=== PATIENT | female | born 2000 | race Two or more races ===

== ENCOUNTER 2021-05-19 18:51 | Emergency (ER) | payer OTHER ==
[~2021-05-19] VITALS: Ht 167.6 cm; Wt 84.1 kg
[2021-05-19 19:15] VITALS: BP 116/59
[2021-05-19] MEDS ORDERED: HYDR-2765 PO (21:39)
--- NOTE | 2021-05-19 21:40 | PHYS DOC ---
Past Medical History Additional Past Medical Histor: RECTABL ABSCESS Past Surgical History: Smoking Status: Never Smoker Alcohol Use: Occasionally General Adult EDM: Chief Complaint: ABSCESS HPI: HPI: Patient is a 21 year old female presents to the emergency department complaining of pain from her I&D site on her buttocks she reports she had an abscess on her buttocks, seen urgent care yesterday, and I&D procedure was performed, patient was started on oral antibiotic, was not given pain medications, patient reports she is having pain at the site where they did the incision and drainage. Patient reports she is taking her antibiotics as prescribed. Patient states she has not taken any [id number]-iklivli or prescription pain medications for her pain. Patient reports she has not tried any nonpharmacological pain relief therapies at home. Patient denies fever or chills. Denies nausea, vomiting, or diarrhea. Patient reports her pain is a stabbing burning pain that she rates a 10 out of 10. Patient reports her last menstrual cycle was 1 week ago with normal duration of flow, denies allergies to medications, see [facility] for primary care. Patient denies any other physical complaints or physical concerns. Review of Systems: Review of Systems: 14 body systems of review of systems have been reviewed. See HPI for pertinent positives and negative responses, otherwise all other systems are negative, nonpertinent or noncontributory. Constitutional: Negative except as outlined in HPI above. Skin: Negative except as outlined in HPI above. Eyes: Negative except as outlined in HPI above. HENT: Negative except as outlined in HPI above. Respiratory: Negative except as outlined in HPI above. Cardiovascular: Negative except as outlined in HPI above. GI: Negative except as outlined in HPI above. : Negative except as outlined in HPI above. Musculoskeletal: Negative except as outlined in HPI above. Integument: Negative except as outlined in HPI above. Neurologic: Negative except as outlined in HPI above. Endocrine: Negative except as outlined in HPI above. Lymphatic: Negative except as outlined in HPI above. Psychiatric: Negative except as outlined in HPI above. Heart Score: C/O Chest Pain: No Risk Factors: Risk Factors: DM, Current or recent (<one month) smoker, HTN, HLP, family history of CAD, obesity. Risk Scores: Score 0 - 3: 2.5% MACE over next 6 weeks - Discharge Home Score 4 - 6: 20.3% MACE over next 6 weeks - Admit for Clinical Observation Score 7 - 10: 72.7% MACE over next 6 weeks - Early Invasive Strategies Allergies: Allergies: Allergies Coded Allergies Type Severity Reaction Last Updated Verified No Known Drug Allergies 05/19/21 No Physical Exam: PE: Constitutional: Well developed, well nourished, no acute distress, non-toxic appearance. 21-year-old female in no apparent distress. HENT: Normocephalic, atraumatic. Eyes: Conjunctiva normal, no discharge. Neck: Normal range of motion, no stridor. Cardiovascular: No cyanosis appreciated, distal cap refill less than 2 seconds. Lungs & Thorax: Patient is in no respiratory distress, no audible adventitious lung sounds appreciated. Abdomen: Nontender, no abnormalities noted. Skin: Warm, dry, no erythema, no rash. See note for focused skin exam Back: No tenderness, no deformities. Extremities: No tenderness, no cyanosis, no clubbing, ROM intact, no edema. Neurologic: Alert and oriented X 3, normal motor function, normal sensory function, no focal deficits noted. Psychologic: Affect normal, judgement normal, mood normal. 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 Current Patient Data: Vital Signs: Vital Signs Date Time Temp Pulse Resp B/P (MAP) Pulse Ox O2 Delivery O2 Flow Rate FiO2 05/19/21 19:15 99.6 100 20 116/59 100 Room Air 99.6 EKG: EKG: [] Radiology/Procedures: Radiology/Procedures: [] Course & Med Decision Making: Course & Med Decision Making Pertinent Labs and Imaging studies reviewed. (See chart for details) 21-year-old female, vital signs reviewed, presents emergency department concerning painful I&D abscess site. Physical examination reveals I&D site with appropriate drainage, there is no packing. Discussed with patient home care, patient states she has only done 1 sitz bath since I&D procedure yesterday morning. Discussed at length with and educated at length with patient regarding I&D wound care at home, patient reports she was not given any instructions on how to care for her incision and drainage wound. Discussed with patient at length current antibiotic regimen, side effects, taking medication as directed until complete. Strict follow-up with primary care for wound evaluation and ongoing management. Patient gave verbal understanding of I&D wound care at home, antibiotic regimen, follow-up with primary care, patient states she is thankful and feels confident she can care for her abscess at home now. Patient will be given oral pain medication prior to discharge. Discussed with the patient all findings and diagnostic testing as well as the need to follow-up with their primary care provider for further evaluation and treatment or return to the ED if any new or worsening symptoms. Strict return precautions were also discussed at length, the patient voiced understanding and agreement with the discharge planning. The patient was nontoxic in appearance, in no apparent distress, and hemodynamically stable at the time of disposition. Dragon Disclaimer: Dragon Disclaimer: This electronic medical record was generated, in whole or in part, using a voice recognition dictation system. Departure Departure Impression: Primary Impression: Abscess, gluteal, left Disposition: 01 HOME / SELF CARE / HOMELESS Condition: GOOD Referrals: NO PCP (PCP) Patient Instructions: Abscess Additional Instructions: You were seen today in the emergency department for a draining abscess to your left buttocks. You were seen yesterday at the urgent care in which they performed an incision and drainage. It is draining normally at this time. As we discussed at length, please continue with the oral antibiotic regimen that they started you on, please take sitz baths every 2-3 hours for the next several days. Please follow-up with your urgent care this coming Saturday for re evaluation of their incision and drainage. I am prescribing you a short dose of oral pain medications to use for severe pain otherwise please use Tylenol and/or Motrin. Please follow-up with your primary care physician at [facility] for ongoing pain management and wound care management. Please return to the emergency department for worsening symptoms other concerns. Thank you for visiting our Emergency Department. It was a pleasure taking care of you today in the emergency department and we appreciate you trusting us with your care. If any additional problems come up don't hesitate to return to visit us. Please follow up with your primary care provider so they can plan additional care if needed and know about the problem that you had. If symptoms worsen come back to the Emergency Department. Any concerning symptoms that start such as chest pain, shortness of air, weakness or numbness on one side of the body, running high fevers or any other concerning symptoms return to the ER. EMERGENCY DEPARTMENT GENERAL DISCHARGE INSTRUCTIONS Thank you for coming to [facility] Emergency Department (ED) [place] and trusting us with you care. We trust that you had a positive experience in our Emergency Department. If you wish to speak to the department management, you may call the Director at [phone]. YOUR FOLLOW UP INSTRUCTIONS ARE FOLLOWS: 1. Do you have a private Doctor? If you do not have a private doctor, please ask for a resource list of physicians or clinics that may be able to assist you with follow up care. 2. The Emergency Physicain has interpreted your x-rays. The X-Ray specialist will also review them. If there is a change in the findings, you will be notified in 48 hours when at all possible. 3. A lab test or culture has been done, your results will be reviewed and you will be notified if you need a change in treatment. ADDITIONAL INSTRUCTIONS AND INFORMATION: 1. Your care today has been supervised by a physician who is specially trained in emergency care. Many problems require more than one evaluation for a complete diagnosis and treatment. We recommend that you schedule your follow up appointment as recommended to ensure complete treatment of you illness or injury. If you are unable to obtain follow up care and continue to have a problem, or if your condition worsens, we recommend that you return to the ED. 2. We are not able to safely determine your condition over the phone nor are we able to give sound medical advice over the phone. For these safety reasons, if you call for medical advice we will ask you to come to the ED for further evaluation. 3. If you have any questions regarding these discharge instructions please call the ED at [phone]. SAFETY INFORMATION: In the interest of safety, wellness, and injury prevention; we encourage you to wear your sealbelt, if you smoke; quite smoking, and we encourage family to use a protective helmet for bicycling and other sporting events that present an increased risk for head injury. IF YOUR SYMPTOMS WORSEN OR NEW SYMPTOMS DEVELOP, OR YOU HAVE CONCERNS ABOUT YOUR CONDITION; OR IF YOUR CONDITION WORSENS WHILE YOU ARE WAITING FOR YOUR FOLLOW UP APPOINTMENT; EITHER CONTACT YOUR PRIMARY CARE DOCTOR, THE PHYSICIAN WHOSE NAME AND NUMBER YOU WERE GIVEN, OR RETURN TO THE ED IMMEDIATELY. Scripts Hydrocodone Bit/Acetaminophen (HYDROCODONE-APAP 7.5-325 ) 1 Tab Tablet 1 TAB PO PRN Q6HRS PRN for PAIN, #10 TAB 0 Refills Prov: AMY MATOS APRN 05/19/21 AMY MATOS APRN May 19, 2021 21:40
[2021-05-19] MEDS ORDERED: HYDROcodone/APAP 5/325MG 1 TAB TABLET PO ONE (22:00)
== END 2021-05-19 21:55 | disposition home or self-care (01) ==
LOC: ER 18:51
DX: L02.31 Cutaneous abscess of buttock (principal)
CPT/HCPCS: 99283

== ENCOUNTER 2021-08-15 00:03 | Emergency (ER) | payer OTHER ==
[~2021-08-15] VITALS: Ht 167.6 cm; Wt 84.1 kg
[~2021-08-15 00:03] MED LIST: HYDR-2765 PO
[2021-08-15 00:25] VITALS: BP 120/68
[2021-08-15] MEDS ORDERED: AMOX1TAB61 PO (00:49)
[2021-08-15] MEDS ORDERED: NAPR-683 PO (00:49)
[2021-08-15] MEDS ORDERED: TRAM-48 PO (00:49)
--- NOTE | 2021-08-15 00:52 | PHYS DOC ---
Past Medical History Additional Past Medical Histor: RECTABL ABSCESS Past Surgical History: Smoking Status: Never Smoker Alcohol Use: None General Adult EDM: Chief Complaint: SORE THROAT HPI: HPI: Patient is a 21 year old female presents with a chief complaint of sore throat. Patient states she has had sore throat for approximately 1 week. Is primarily located on the left side. Patient states she was seen at [facility] urgent care had a negative strep test received antibiotic shot and prescription for clindamycin. Patient states she has been taking her medications as prescribed but her symptoms continue and seem to be worse. Patient has been taking Tylenol with no relief for her pain. Review of Systems: Review of Systems: Review of systems: Constitutional symptoms- No fever, no chills. Eyes- No Discharge, No Visual Loss Respiratory symptoms- No shortness of breath, No wheezing, No Dyspnea on Exertion Cardiovascular Systems; No chest pain, No Palpitations, No syncope Gastrointestinal symptoms: NO abdominal pain, no nausea, no vomiting or diarrhea. Genitourinary symptoms: No dysuria. Musculoskeletal symptoms: No back pain No extremity pain. NEUROLOGICAL Symptoms: No headache, no generalized weakness; No focal Weakness Skin: No rash. HEENT positive sore throat Heart Score: C/O Chest Pain: N/A Risk Factors: Risk Factors: DM, Current or recent (<one month) smoker, HTN, HLP, family history of CAD, obesity. Risk Scores: Score 0 - 3: 2.5% MACE over next 6 weeks - Discharge Home Score 4 - 6: 20.3% MACE over next 6 weeks - Admit for Clinical Observation Score 7 - 10: 72.7% MACE over next 6 weeks - Early Invasive Strategies Allergies: Allergies: Allergies Coded Allergies Type Severity Reaction Last Updated Verified No Known Drug Allergies 05/19/21 No Physical Exam: PE: General: alert, no acute distress. Skin: warm, dry and intact, no erythema, no rash. HENT: bilateral external ears normal, oropharynx moist, nose normal. Pharyngeal erythema no exudate no tonsillar deviation no hoarse voice Head:: Normocephalic, atraumatic. Neck: Trachea midline. Eyes: EOMI, Normal conjunctiva, No drainage CARDIOVASCULAR: Regular rate and rhythm RESPIRATORY: No respiratory distress Back: Full range of motion. MUSCULOSKELETAL: Full range of motion of bilateral upper and lower extremities. GASTROINTESTINAL: Abdomen soft without rebound or guarding. NEUROLOGICAL: Alert and noted to person, place and time. No neurological deficits observed Psychiatric: Cooperative. Normal judgment Current Patient Data: Vital Signs: Vital Signs Date Time Temp Pulse Resp B/P (MAP) Pulse Ox O2 Delivery O2 Flow Rate FiO2 08/15/21 00:25 98.2 93 16 120/68 (85) 100 Room Air 98.2 EKG: EKG: [] Radiology/Procedures: Radiology/Procedures: [] Course & Med Decision Making: Course & Med Decision Making Pertinent Labs and Imaging studies reviewed. (See chart for details) [] We will treat patient with Decadron p.o. Her antibiotic will be changed to Augmentin. We will also prescribe patient Ultram. Dragon Disclaimer: [employer] Disclaimer: This electronic medical record was generated, in whole or in part, using a voice recognition dictation system. Departure Departure Impression: Primary Impression: Pharyngitis Disposition: HOME / SELF CARE / HOMELESS Condition: STABLE Referrals: NO PCP (PCP) Patient Instructions: Sore Throat Scripts Naproxen (NAPROSYN) 500 Mg Tablet 500 MG PO BID, #20 TAB Prov: SYLVAIN MIRANDA I DO 08/15/21 Tramadol Hcl (ULTRAM) 50 Mg Tablet 50 MG PO Q4HRS PRN for PAIN, #20 TAB 0 Refills Prov: SYLVAIN MIRANDA I DO 08/15/21 Amoxicillin/Potassium Clav (AUGMENTIN 875-125 TABLET) 1 Each Tablet 1 TAB PO BID for 10 Days, #20 TAB 0 Refills Prov: SYLVAIN MIRANDA I DO 08/15/21 SYLVAIN MIRANDA I DO Aug 15, 2021 00:52
[2021-08-15] MEDS ORDERED: DEXAMETHASONE SOD PHOS 20 MG/5 ML VIAL. PO ONE (01:30)
== END 2021-08-15 01:15 | disposition home or self-care (01) ==
LOC: ER 00:03
DX: J02.9 Acute pharyngitis, unspecified (principal)
CPT/HCPCS: 99283